=== PATIENT | female | born 1970 | race Caucasian/White ===

== ENCOUNTER → 2017-05-31 | Outpatient (CLI) | payer BC ==
[2015-08-15 17:29] VITALS: BP 154/67
[~2017-05-31] MED LIST: BUTO10SP NS; CETI-17 PO; CETI10CA PO; CHOL100014 PO; DIPH25CA58 PO; DULO60CA6; DULO60CA6 PO; EMERGE PO; LISI-338 PO; MAGN400T22 PO; NARA2.5T PO; NARA2.5T4 PO; NORT10CA PO; NORT25CA3 PO; ONDA4TAB12 PO; PHEN10TA3 PO; PROC10TA57 PO; TIZA4CAP3 PO; TRAM-48; TRAM50TA PO; phenergan; phenergan PO; tramadol PO
--- NOTE | 2017-05-31 14:08 | RAD ---
3 views of the cervical spine 05/31/2017 Indication: Neck pain Comparison study: None Discussion: No fracture or alignment abnormality is identified. [place] anomaly of C1 noted, a common variant. Vertebral body heights and disc spaces are preserved. Facet joints remain aligned. No prevertebral soft tissue edema is seen. Atlantoaxial articulation appears to be intact. No acute soft tissue changes are seen. Impression: No evidence of acute osseous normality involving the cervical spine is identified
== END | disposition home or self-care (01) ==
LOC: PMG 11:06
PROVIDERS: ATTEND Nurse Practitioner Family
DX: M54.2 Cervicalgia (principal)
CPT/HCPCS: 72040